=== PATIENT | female | born 2000 | race Caucasian/White ===

== ENCOUNTER 2020-02-20 21:39 | Emergency (ER) | payer OTHER ==
[2020-02-20 22:01] VITALS: BP 107/61
--- NOTE | 2020-02-20 23:43 | ED Physician Documentation ---
PD HPI MHE - Stated complaint Stated Complaint: SI - Chief complaint Chief Complaint: MHE - History obtained from History obtained from: Patient - History of Present Illness Primary symptom: Other (grieving) Timing - onset: How many weeks ago (3) Pain level now: 0 Recently seen: Not recently seen - Additional information Additional information: brought to ED by her command (patient is [employer] at [facility]) due to concerns as to how she has been dealing with of close friend. patient says close friend 3 weeks ago, and she has been dealing with feeling of sadness, grief, and loss since then. She strongly denies suicidal thoughts, denies thought if hurting self or others, denies delusions. she admits to feeling sad, possibly even depressed, but she does not feel she needs to be in ED setting for this at this time. Review of Systems Constitutional: reports: Reviewed and negative Cardiac: reports: Reviewed and negative Respiratory: reports: Reviewed and negative GI: reports: Reviewed and negative Psychiatric: reports: Depressed. denies: Suicidal, Homicidal, Hallucinations, Delusions, Anxiety, Insomnia PD PAST MEDICAL HISTORY - Past Medical History Past Medical History: No - Past Surgical History Past Surgical History: No - Allergies Allergies/Adverse Reactions: Allergies Allergy/AdvReac Type Severity Reaction Status Date / Time Sulfa (Sulfonamide Allergy Unknown Verified 02/20/20 22:00 Antibiotics) sulfamethoxazole Allergy Unknown Verified 02/20/20 22:00 [From Bactrim] trimethoprim [From Bactrim] Allergy Unknown Verified 02/20/20 22:00 - Living Situation Living Arrangement: reports: At home - Social History Does the pt smoke?: No PD ED PE NORMAL - Vitals Vital signs reviewed: Yes - General General: Alert and oriented X 3, No acute distress, Well developed/nourished - Cardiac Cardiac: RRR, No murmur - Respiratory Respiratory: No respiratory distress, Clear bilaterally - Neuro Neuro: Alert and oriented X 3 Eye Opening: Spontaneous Motor: Obeys Commands Verbal: Oriented GCS Score: 15 - Psych Psych: Normal mood, Normal affect Results - Vitals Vitals: Oxygen O2 Source Room air PD MEDICAL DECISION MAKING - ED course Complexity details: considered differential, d/w patient ED course: calm, cooperative, polite patient with no indication, given the information available to me at the time of this evaluation, that she is having complicated/abnormal grieving. she strongly denies SI, HI. I offered services of SW, telepsych, inpatient treatment; she declines all of these, says she is comfortable going home, knows there are resources on [facility] base for mental health and says she will immediately seek out these resources to help her through the grieving process. She is not a danger to herself or others at this time, can contract for safety, and thus discharged from ED without further evaluation. Departure - Departure Disposition: 01 Home, Self Care Clinical Impression: Grieving Condition: Good Instructions: ED Stress React Follow-Up: [facility] Lorelei Ragland [Provider Group] Discharge Date/Time: 02/21/20 00:22
== END 2020-02-21 00:22 | disposition home or self-care (01) ==
LOC: ED 21:39
DX: F43.21 Adjustment disorder with depressed mood (principal)
CPT/HCPCS: 99281; 99282